=== PATIENT | male | born 1960 | race Caucasian/White ===

== ENCOUNTER 2020-09-30 21:01 | Emergency (ER) | payer MEDICAID, OTHER, SELFPAY ==
[~2020-09-30] VITALS: Ht 172.7 cm; Wt 86.0 kg
[2020-09-30] MEDS ORDERED: DIPH,PERTUSS(ACELL),TET VAC/PF 0.5 ML IM-VACC ONE ×2 (22:00→22:16)
[2020-09-30] MEDS ORDERED: PLEASE ENTER ALLERGIES MC SCH (22:00)
--- NOTE | 2020-09-30 22:09 | NUR ---
pt in bed with no signs or symptoms of acute distress noted respirations even and unlabored lights low in room for comfort. bed in lowest position, bed rails up bilaterally, call light within reach.
[2020-09-30] MEDS ORDERED: LIDOCAINE-MPF 1%, 5ML ONE (23:04)
--- NOTE | 2020-09-30 23:19 | NUR ---
pt in bed with no signs or symptoms of acute dsitress noted respirations even and unlabored pa at bedside to perform wound closure.
[2020-09-30] MEDS ORDERED: LIDOCAINE-MPF 1%, 5ML INFIL ONE (23:30)
--- NOTE | 2020-10-01 00:12 | NUR ---
pt resting quietly in bed with eyes closed and even unlabored respirations no signs or symptoms of acute dsitress noted. bed in lowest position. bed rails up bilaterally, call light within reach.
--- NOTE | 2020-10-01 02:05 | NUR ---
pt continues to rest quietly in bed, will not leave monitor in place. no signs or symptoms of acute distress noted respirations even and unlabored
--- NOTE | 2020-10-01 02:21 | NUR ---
rn in room to wake up pt. pt rouses easily and verbalizes readiness to dc. pt up to ambulate in hallway with rn walked with steady gait and good balance. pt provided dc instructions, pt verbalizes understanding and agreement with plan of care. pt given taxi voucher and brought to discharge desk for registration. no signs or symptoms of acute dsitress noted respirations even and unlabored. pt denies pain or discomfort. ready to dc.
[2020-10-01 02:23] VITALS: BP 135/67
== END 2020-10-01 02:25 | disposition home or self-care (01) ==
LOC: ED 10-01 02:00
DX: S01.111A Laceration without foreign body of right eyelid and periocular area, initial encounter (principal); S01.411A Laceration without foreign body of right cheek and temporomandibular area, initial encounter; S09.90XA Unspecified injury of head, initial encounter; F10.120 Alcohol abuse with intoxication, uncomplicated; I10 Essential (primary) hypertension; F17.210 Nicotine dependence, cigarettes, uncomplicated; W01.0XXA Fall on same level from slipping, tripping and stumbling without subsequent striking against object, initial encounter; Y93.89 Activity, other specified; Y92.59 Other trade areas as the place of occurrence of the external cause; Y99.8 Other external cause status
CPT/HCPCS: 12013; 70450; 90471; 90715; 99406

== ENCOUNTER 2020-10-09 14:07 | Emergency (ER) | payer MEDICAID ==
[~2020-10-09] VITALS: Ht 180.3 cm; Wt 92.0 kg
--- NOTE | 2020-10-09 15:07 | NUR ---
MD exam completed. Pt resting comfortably. Hourly rounding assessment completed.
--- NOTE | 2020-10-09 15:50 | NUR ---
task RN: pt VS updated. resting in position of comort. no family at bedside
--- NOTE | 2020-10-09 16:15 | NUR ---
Pt up and starting to walk out. Escorted back into room for repeat VS and d/c instructions. Pt walked out and used the ambulance entrance, refused to come back to discharge desk and walked off with steady gait.
[2020-10-09 16:24] VITALS: BP 121/50
== END 2020-10-09 18:27 | disposition home or self-care (01) ==
LOC: ED 18:00
DX: F10.120 Alcohol abuse with intoxication, uncomplicated (principal); I10 Essential (primary) hypertension; F17.200 Nicotine dependence, unspecified, uncomplicated; Y90.0 Blood alcohol level of less than 20 mg/100 ml
CPT/HCPCS: 99283